=== PATIENT | male | born 1965 ===

== ENCOUNTER 2017-10-23 09:08 | Emergency (ER) | payer OTHER, SELFPAY ==
--- NOTE | 2017-10-23 10:28 | ED PDOC ---
HPI: Back Time Seen by Provider: 10/23/17 09:44 Chief Complaint (Nursing): Back Pain Chief Complaint (Provider): Back Pain History Per: Patient History/Exam Limitations: no limitations Onset/Duration Of Symptoms: Days (x3) Current Symptoms Are (Timing): Still Present Additional Complaint(s): 52 year old male presents to the emergency department with a complaint of left- sided lower back pain radiating to his testicles ongoing for 3 days. He denied any fever, chills, nausea, vomiting, dysuria, hematuria or urine frequency. Patient has a history of a herniated lumbar disc. PMD: none provided Past Medical History Reviewed: Historical Data, Nursing Documentation, Vital Signs Vital Signs: Last Vital Signs Temp 98 F 10/23/17 09:22 Pulse 67 10/23/17 09:22 Resp 18 10/23/17 09:22 BP 113/66 10/23/17 09:22 Pulse Ox 96 10/23/17 09:22 - Medical History PMH: No Chronic Diseases - Surgical History Surgical History: No Surg Hx - Family History Family History: States: Unknown Family Hx - Social History Current smoker - smoking cessation education provided: No Ex-Smoker (has not smoked in the last 12 months): No Alcohol: None Drugs: Denies - Home Medications Home Medications: Ambulatory Orders Medication Instructions Recorded Cyclobenzaprine [Cyclobenzaprine 10 mg PO TID #10 tab 10/23/17 HCl] Naproxen [Naprosyn] 500 mg PO Q12H #20 tab 10/23/17 - Allergies Allergies/Adverse Reactions: Allergies Allergy/AdvReac Type Severity Reaction Status Date / Time No Known Allergies Allergy Verified 10/23/17 09:22 Review of Systems ROS Statement: Except As Marked, All Systems Reviewed And Found Negative Constitutional: Negative for: Fever, Chills Gastrointestinal: Negative for: Nausea, Vomiting Genitourinary Male: Positive for: Other (testicular pain). Negative for: Dysuria, Frequency, Hematuria Musculoskeletal: Positive for: Back Pain (lower left) Physical Exam - Reviewed Nursing Documentation Reviewed: Yes Vital Signs Reviewed: Yes - Physical Exam Appears: Positive for: Uncomfortable Gastrointestinal/Abdominal: Positive for: Normal Exam, Soft. Negative for: Tenderness, Distended Back: Positive for: Normal Inspection. Negative for: L CVA Tenderness, R CVA Tenderness, Vertebral Tenderness (spinal), Other (deformities) Neurologic/Psych: Positive for: Alert, Oriented. Negative for: Motor/Sensory Deficits - ECG O2 Sat by Pulse Oximetry: 96 (RA) Pulse Ox Interpretation: Normal - Progress Re-evaluation Time: 12:25 Condition: Improved Medical Decision Making Medical Decision Making: Initial Impression: Lower back pain Initial Plan: * CT ABD/pelvis without contrast * Urine dipstick * Toradol 30mg IM Scribe Attestation: Documented by Ida Millard, acting as a scribe for Asa Ruby MD. Provider Scribe Attestation: All medical record entries made by the Scribe were at my direction and personally dictated by me. I have reviewed the chart and agree that the record accurately reflects my personal performance of the history, physical exam, medical decision making, and the department course for this patient. I have also personally directed, reviewed, and agree with the discharge instructions and disposition. Disposition - Clinical Impression Clinical Impression: Back strain - Patient ED Disposition Is Patient to be Admitted: No Counseled Patient/Family Regarding: Studies Performed, Diagnosis, Need For Followup, Rx Given - Disposition Referrals: Phillip Atkinson MD [Staff Provider] - Disposition: Routine/Home Disposition Time: 12:26 Condition: FAIR Prescriptions: Cyclobenzaprine [Cyclobenzaprine HCl] 10 mg PO TID #10 tab Naproxen [Naprosyn] 500 mg PO Q12H #20 tab Instructions: Low Back Pain in Adults Forms: [facility] (Greek) Print Language: KAZAKH
--- NOTE | 2017-10-23 10:36 | CT ---
PROCEDURE: CT Abdomen and Pelvis without intravenous contrast HISTORY: Low back pain. COMPARISON: 12/03/2015. TECHNIQUE: Unenhanced study. Neither oral nor intravenous contrast administered. Radiation dose: Total exam DLP = Total exam DLP = 903.22 mGy-cm. This CT exam was performed using one or more of the following dose reduction techniques: Automated exposure control, adjustment of the mA and/or kV according to patient size, and/or use of iterative reconstruction technique. FINDINGS: LOWER THORAX: Unremarkable. LIVER: Unremarkable. No gross lesion or ductal dilatation. GALLBLADDER AND BILE DUCTS: Unremarkable. PANCREAS: Unremarkable. No gross lesion or ductal dilatation. SPLEEN: Unremarkable. ADRENALS: Unremarkable. No mass. KIDNEYS AND URETERS: Unremarkable. No hydronephrosis. No solid mass. VASCULATURE: Unremarkable. No aortic aneurysm. BOWEL: Unremarkable. No obstruction. No gross mural thickening. APPENDIX: Unremarkable. Normal appendix. PERITONEUM: Unremarkable. No free fluid. No free air. LYMPH NODES: Unremarkable. No enlarged lymph nodes. BLADDER: Unremarkable. REPRODUCTIVE: Unremarkable. BONES: No acute fracture. OTHER FINDINGS: None. IMPRESSION: Unremarkable non contrast enhanced CT of the abdomen and pelvis.
[2017-10-23 13:00] VITALS: BP 119/78; PULSE 76; RESP 16; TEMP 98.5; O2SAT 99
== END 2017-10-23 13:00 | disposition home or self-care (01) ==
LOC: H.ER 09:08
DX: M54.9 Dorsalgia, unspecified (principal)
CPT/HCPCS: 74176; 96372; 99283; J1885